=== PATIENT | female | born 1965 | race Caucasian/White ===

== ENCOUNTER 2016-12-14 15:06 | Emergency (ER) | payer MEDICARE ==
--- NOTE | ~2016-12-14 | CT2 ---
[facility] A Service of [facility] RADIOLOGY TEXT RESULTS PATIENT: ROSIO MARIE LOCATION: SED : 67 UNIT #: [id number] AGE: [address]: Sondra Gallego SEX: F ORDER DR: [id number] [address] [id number] MR#: [id number] Acc #: [id number] NAME: ROSIO MARIE : 1965 SEX: F STUDY DATE/TIME: 12/14/2016 17:41 UNIT: SED ROOM: STUDY DESCRIPTION: CT Abd and Pelv W Cont Attending Physician: Sondra Gallego Pa-C Ordering Physician: Sondra Gallego Pa-C Primary Care Physician: Zhou Erickson M.D. MEDICAL IMAGING REPORT This report is preliminary unless electronic signature is present. EXAM CT abdomen and pelvis with contrast. HISTORY Right lower quadrant pain x2 weeks, nausea. COMPARISON CT abdomen and pelvis, 06/28/2012. FINDINGS Axial images performed through the abdomen and pelvis following IV contrast. Multiplanar reconstructed images were reviewed. This CT exam was performed with one or more of the following radiation dose reduction techniques: automatic exposure control, adjustment of mA and/or kV according to patient size, and iterative reconstruction. FINDINGS ABDOMEN: 1.6 cm low-attenuation lesion dome of the liver unchanged from prior studies probably represents a small cyst. Gallbladder and spleen appear normal. Pancreas, kidneys and adrenal glands unremarkable. Visualized GI tract appears normal. The appendix not clearly identified, but no focal inflammatory change. Retroperitoneum unremarkable. PELVIS: The bladder unremarkable. Uterus demonstrates some heterogeneous enhancement could represent small fibroids, but no sizeable lesion identified. The adnexa unremarkable. Tubal ligation clips noted. Osseous structures and soft tissues unremarkable. IMPRESSION No definite acute intraabdominal/intrapelvic pathology. [facility] A Service [facility] RADIOLOGY TEXT RESULTS PATIENT: ROSIO MARIE LOCATION: SED : 67 UNIT #: [id number] AGE: [address]: Sondra Gallego SEX: F ORDER DR: Dictated by... Az Zuniga M.D. THIS IS AN ELECTRONICALLY VERIFIED REPORT Az Zuniga M.D. at 12/15/2016 2:05 PM Alexis TD: 12/14/2016 21:20 JOB #: [id number] MEDICAL IMAGING REPORT Page 1 of 1
[~2016-12-14 15:06] MED LIST: ALPRAZOLAM PO; AMBI PO; AMITRYPTYLINE PO; CELEXA PO; CIPRO PO; CLONIDINE HCL0.1 MG PO; FLONASE 0.05% N16 G1; HYDROCODON-ACE1 EAC5 PO; KLONOPIN PO; KLONOPIN0.5 MG PO; MEDROL DOSEPAK4 MG PO; MOBIC PO; NEURONTIN PO; PERCOCET10 PO; PHENERGAN PO; PRISTIQ PO; PROZAC; ROBAXIN PO; SEROQUEL PO; SYNTHROID PO; TRAZODONE PO; VICODIN 5/500 T1 TAB PO; VOLTAREN50 MG PO; VOLTAREN75 MG PO; [UNRECOGNIZED DRUG - OTHER]
[2016-12-14] MEDS ORDERED: ZANAFLEX PO (15:29)
[2016-12-14] MEDS ORDERED: ADDERALL PO (15:29)
[2016-12-14 16:33] LABS: BASOPHIL# 0.1 X10e3 (0-0.3); BASOPHIL% 0.8 % (0-2.5); EOSINOPHIL# 0.1 X10e3 (0-0.7); EOSINOPHIL% 1.9 % (0.0-7.0); HEMATOCRIT 49.4 % (35.0-45.0); HEMOGLOBIN 16.5 gm/dL (12.0-16.0); LYMPHOCYTE# 1.6 X10e3 (1.0-3.5); LYMPHOCYTE% 23.6 % (17.0-45.0); MEAN CELL VOLUME 92.5 FL (83-96); MEAN CORPUSCULAR HEMOGLOBIN 30.9 PG (28-34); MEAN CORPUSCULAR HGB CONC 33.4 g/dL (30-36); MEAN PLATELET VOLUME 9.7 FL (6.5-11.5); MONOCYTE# 0.6 X10e3 (0-1.0); MONOCYTE% 8.6 % (3.0-12.0); NEUTROPHIL# 4.5 X10e3 (1.5-7.1); NEUTROPHIL% 65.1 % (40-75); PLATELET COUNT 197 X10e3 (140-420); RED BLOOD COUNT 5.34 X10e (3.90-5.30); RED CELL DISTRIBUTION WIDTH 14.3 % (11.0-15.5); WHITE BLOOD COUNT 6.9 X10e3 (4.0-10.5)
[2016-12-14 16:35] LABS: DIFF IND NO
[2016-12-14 16:37] LABS: URINE SOURCE CLEAN CATCH
[2016-12-14 16:39] LABS: URINE APPEARANCE CLEAR; URINE BILIRUBIN NEG (NEG); URINE BLOOD TRACE-INTACT (NEG); URINE COLOR YELLOW; URINE GLUCOSE NEG (NORM); URINE KETONE NEG (NEG); URINE LEUKOCYTE ESTERASE 1+ (NEG); URINE NITRATE NEG (NEG); URINE PROTEIN NEG (NEG); URINE UROBILINOGEN 0.2 MG/DL (NORM)
[2016-12-14 16:43] LABS: MICRO INDICATED? YES
[2016-12-14 16:44] LABS: ALBUMIN SERUM 4.2 g/dL (3.5-5.0); BILIRUBIN, DIRECT 0.1 mg/dL (0.0-0.2); BILIRUBIN,INDIRECT 0.5 mg/dL (0.0-0.9); BILIRUBIN,TOTAL 0.6 mg/dL (0.2-2.0); BUN/CREATININE RATIO 6.66; CALCIUM SERUM 9.1 mg/dL (8.4-10.2); CREATININE SERUM 0.9 mg/dL (0.6-1.4); GLOM FILT RATE Estimated 75.1 mL/min (>60); POTASSIUM 3.6 mmol/L (3.5-5.1); PROTEIN TOTAL SERUM 7.4 g/dL (6.0-8.3)
[2016-12-14 17:06] LABS: CULTURE INDICATED? YES; URINE BACTERIA 1+ (NEG); URINE RBC 0-2 /[HPF] (0-2); URINE SQUAMOUS EPITHELIAL CELL MODERATE /[HPF]
== END 2016-12-14 18:46 | disposition home or self-care (01) ==
LOC: SED 15:06
PROVIDERS: Physician Assistant Medical
DX: R10.31 Right lower quadrant pain (principal); F31.9 Bipolar disorder, unspecified; F17.210 Nicotine dependence, cigarettes, uncomplicated; Z98.51 Tubal ligation status; Z79.899 Other long term (current) drug therapy; Z88.5 Allergy status to narcotic agent
CPT/HCPCS: 36415; 74177; 80048; 80076; 81003; 85025; 87086; 87088; 87186; 96374; 99284; J1885; Q9967